=== PATIENT | male | born 1945 | race Caucasian/White ===

== ENCOUNTER 2022-04-13 14:46 | Emergency (ER) | payer MEDICARE, BC ==
[~2022-04-13] VITALS: Ht 175.3 cm; Wt 79.0 kg
[~2022-04-13 14:46] MED LIST: ASPIRIN81 MG PO; FLORASTOR250 M1 PO; FLUTICASONE50 MCG; HYCODAN5 MG PO; HYDROCHLOROT12.5 MG PO; L-ARGININE500 MG PO; LISINOPRIL20 MG PO; LORAZEPAM0.5 MG PO; METRONIDAZOL500 MG PO; PAROXETINE20 MG PO; PRILOSEC20 MG PO; PROBIOTI2 PO; TOVIAZ4 MG PO; VANCOMYCIN HCL250 MG PO
[2022-04-13 15:17] LABS: HEMATOCRIT 46.1 % (39.0-50.0); HEMOGLOBIN 15.8 g/dl (14.0-18.0); IMMATURE GRANULOCYTES 0.1 % (0.0-5.0); MEAN CELL VOLUME 91.5 fL CALC (80.0-100.0); MEAN CORPUSCULAR HGB 31.3 pG CALC (26.0-32.0); MEAN CORPUSCULAR HGB CONC 34.3 g/dL CAL (32.0-36.0); NEUT# 4.22 thou/uL (1.82-7.42); RED BLOOD COUNT 5.04 mill/uL (4.70-6.10); RED CELL DISTRI WIDTH 12.9 % (11.5-15.5)
[2022-04-13 15:45] VITALS: BP 143/72
[2022-04-13 15:46] LABS: ALBUMIN 4.4 g/dL (3.2-5.0); ALKALINE PHOSPHATASE 88 u/l (38-126); ANION GAP 11 (6-22 (CALC)); BUN 26 mg/dL (8-23); BUN/CREATININE RATIO 31 (12-20 (CALC)); CARBON DIOXIDE 30 mmol/l (22-30); CHLORIDE 101 mmol/l (95-108); CREATININE 0.8 mg/dL (0.7-1.3); GFR FOR AFR.AMER. > 60 ML/MIN (>=60 (CALC)); GFR OTHER RACES > 60 ML/MIN (>=60 (CALC)); LIPASE 84 u/l (23-300); POTASSIUM 3.5 mmol/l (3.5-5.1); SGOT/AST 28 u/l (19-48); SODIUM 139 mmol/l (137-146); TOTAL PROTEIN 7.5 g/dL (6.3-8.2)
[2022-04-13 16:00] VITALS: BP 146/74
[2022-04-13 16:45] VITALS: BP 155/75
[2022-04-13] MEDS ORDERED: (None)125 MG PO (16:59)
[2022-04-13 17:00] VITALS: BP 158/67
[2022-04-13 17:10] VITALS: BP 158/67
== END 2022-04-13 17:18 | disposition home or self-care (01) ==
LOC: ED 14:46
PROVIDERS: Family Medicine
DX: A04.72 Enterocolitis due to Clostridium difficile, not specified as recurrent (principal); I10 Essential (primary) hypertension
CPT/HCPCS: Q9967

== ENCOUNTER 2023-06-21 17:32 | Emergency (ER) | payer MEDICARE, BC ==
[2023-06-21] VITALS (20 sets, daily range): BP systolic 156–211; BP diastolic 82–113
[~2023-06-21] VITALS: Ht 175.3 cm; Wt 70.0 kg
[~2023-06-21 17:32] MED LIST changes: +(None)125 MG PO
[2023-06-21] MEDS ORDERED: ASPIRIN 81 MG/TAB PO ONE (20:15)
[2023-06-21] MEDS ORDERED: amLODIPine BESYLATE 5 MG/TAB PO ONE (20:15)
[2023-06-21 20:32] LABS: BASO% 0.9 % (0-3); EOS% 4.8 % (0-8); HEMATOCRIT 45.6 % (39.0-50.0); HEMOGLOBIN 15.5 g/dl (14.0-18.0); IMMATURE GRANULOCYTES 0.2 % (0.0-5.0); LYMPH% 23.7 % (15-41); MEAN CELL VOLUME 91.9 fL CALC (80.0-100.0); MEAN CORPUSCULAR HGB 31.3 pG CALC (26.0-32.0); MONO% 7.4 % (2-13); NEUT# 4.2 thou/uL (1.82-7.42); RED BLOOD COUNT 4.96 mill/uL (4.70-6.10); RED CELL DISTRI WIDTH 12.4 % (11.5-15.5)
[2023-06-21 20:49] LABS: D-DIMER 0.23 mg/L (0.19-0.60); INTERNATIONAL NORMALIZED RATIO 1.2 RATIO (0.7-1.3); PROTHROMBIN TIME 11.5 SECONDS (9.0-12.5)
[2023-06-21 20:50] LABS: ALBUMIN 4.5 g/dL (3.2-5.0); ALKALINE PHOSPHATASE 100 u/l (38-126); ANION GAP 12 (6-22 (CALC)); BILIRUBIN, TOTAL 1.3 mg/dL (0.2-1.3); BUN 11 mg/dL (8-23); BUN/CREATININE RATIO 15 (12-20 (CALC)); CARBON DIOXIDE 29 mmol/l (22-30); CHLORIDE 103 mmol/l (95-108); CREATININE 0.8 mg/dL (0.7-1.3); DIGOXIN < 0.4 ng/mL (0.8-2.0); ETHYL ALCOHOL 0 mg/dl (0-30); GFR FOR AFR.AMER. > 60 ML/MIN (>=60 (CALC)); GFR OTHER RACES > 60 ML/MIN (>=60 (CALC)); POTASSIUM 4.2 mmol/l (3.5-5.1); SGOT/AST 28 u/l (19-48); SODIUM 139 mmol/l (137-146); TOTAL PROTEIN 7.2 g/dL (6.3-8.2)
[2023-06-21 22:11] LABS: URINE BILIRUBIN - DIPSTICK Negative (NEGATIVE); URINE BLOOD DIPSTICK Small (NEGATIVE); URINE GLUCOSE - DIPSTICK Negative (NEGATIVE); URINE KETONE Negative (NEGATIVE); URINE LEUK ESTERASE Negative (NEGATIVE); URINE NITRITE - DIPSTICK Negative (Negative); URINE PROTEIN - DIPSTICK Negative (NEG-TRACE); URINE SPECIFIC GRAVITY 1.015; URINE UROBILINOGEN - DIPSTICK 0.2 E.U./dL (0.2)
[2023-06-21 22:13] LABS: URINE COLOR Yellow
[2023-06-21 22:19] LABS: URINE RBC 0-2 RBC/hpf (0-5)
[2023-06-21] MEDS ORDERED: hydrALAZINE HCL 20 MG/ML VIAL(1 ML) IV ONE (22:45)
[2023-06-22] VITALS: BP 156/84
[2023-06-22 00:15] VITALS: BP 158/81
[2023-06-22 00:30] VITALS: BP 154/80
[2023-06-22 00:45] VITALS: BP 150/80
[2023-06-22 01:00] VITALS: BP 152/84
[2023-06-22] MEDS ORDERED: HYDROCHLOROT12.5 M1 PO (01:12)
[2023-06-22 01:15] VITALS: BP 158/83
== END 2023-06-22 01:28 | disposition home or self-care (01) ==
LOC: ED 17:32
PROVIDERS: Family Medicine
DX: I10 Essential (primary) hypertension (principal); G20.A1 Parkinson's disease without dyskinesia, without mention of fluctuations